=== PATIENT | male | born 1945 | race Hispanic/Latino ===

== ENCOUNTER 2017-09-25 10:03 | Inpatient (IN) | payer OTHER ==
[~2017-09-25] VITALS: Ht 175.3 cm; Wt 67.2 kg
[2017-09-25 00:30] VITALS: BP 154/74
[2017-09-25 11:20] LABS: BASOPHILS # (AUTO) 0.1 (0.0-0.1); BASOPHILS % 0.3 % (0.0-1.0); HEMATOCRIT 36.6 % (38.2-49.6); HEMOGLOBIN 12.4 g/dL (14.0-18.0); LYMPHOCYTES # (AUTO) 0.7 (1.0-3.2); MEAN CORPUSCULAR HEMOGLOBIN 30.5 pg (28-32); MEAN CORPUSCULAR HGB CONC 33.9 g/dL (31-35); MEAN CORPUSCULAR VOLUME 90.1 fL (81-99); MONOCYTES # (AUTO) 1.5 (0.2-0.8); MONOCYTES % 4.6 % (4.4-11.3); NEUTROPHILS # (AUTO) 30.4 (2.1-6.9); NEUTROPHILS % 91.4 % (38.7-80.0); PLATELET COUNT 369 x10e3/uL (140-360); RED BLOOD COUNT 4.06 x10e6/uL (4.3-5.7); RED CELL DISTRIBUTION WIDTH 12.6 % (11.7-14.4)
--- NOTE | 2017-09-25 11:29 | Diagnostic Imaging Report ---
PROCEDURE:X-RAY LEFT FOOT, COMPLETE COMPARISON:None. INDICATIONS:DIABETIC FOOT ULCER FINDINGS: No evidence of acute fracture. Soft tissue ulcer is present in the palmar aspect of the foot superficial to the metatarsal heads. There is soft tissue gas seen throughout the palmar foot soft tissues as well as the dorsal soft tissues extending to the anterior ankle. Gas overlying the dorsum of the foot limits evaluation for osteomyelitis. There is possible lytic changes involving the cuneiforms on lateral radiograph. There is malalignment of the metatarsal bases with relation to the cuneiforms. There is approximately 3 mm of offset of the second metatarsal base on the intermediate cuneiform. There is narrowing of the Lis Franc interval. Moderate to severe degenerative changes involving the metatarsocuneiform joints. CONCLUSION: Soft tissue ulcer overlying the metatarsal heads with associated soft tissue gas in the palmar and dorsal aspects of the foot, suggestive of infectious process in the setting of diabetic ulcer. Possible lytic changes involving the cuneiforms, which could reflect osteomyelitis, although evaluation is limited radiographically, CT (MRI may be limited by air related artifact) would be helpful for further evaluation. Possible Lis Franc injury (which could be chronic) would could be further evaluated with cross sectional imaging. Dictated by: SPENCER HERNÁNDEZ M.D. on 09/25/2017 at 11:33 Electronically approved by: SPENCER HERNÁNDEZ M.D. on 09/25/2017 at 11:33
[2017-09-25 11:36] LABS: ALANINE AMINOTRANSFERASE 29 IU/L (0-55); ALBUMIN 1.9 g/dL (3.5-5.0); ALBUMIN/GLOBULIN RATIO 0.4 (0.8-2.0); ALKALINE PHOSPHATASE 167 IU/L (40-150); ANION GAP 12.4 mmol/L (8-16); BLOOD UREA NITROGEN 23 mg/dL (7-26); BUN/CREATININE RATIO 31 (6-25); CALCIUM 8.7 mg/dL (8.4-10.2); CARBON DIOXIDE 31 mmol/L (22-29); CHLORIDE 96 mmol/L (98-107); CREATININE, SERUM 0.74 mg/dL (0.72-1.25); EST GLOMERULAR FILTRATION RATE > 60 ML/MIN (60-); GLUCOSE 355 mg/dL (74-118); POTASSIUM 3.4 mmol/L (3.5-5.1); SODIUM 136 mmol/L (136-145)
[2017-09-25] MEDS ORDERED: PIPER-TAZ 3.375 GM 50 ML IV SCH (12:00)
[2017-09-25] MEDS ORDERED: MORPHINE SULFATE INJ 4 MG/ML INJ IV PRN (12:15)
[2017-09-25 12:41] LABS: LYMPHOCYTES % (MANUAL) 3 % (19-48); MONOCYTES % (MANUAL) 5 % (3.4-9.0); NEUTROPHILS % (MANUAL) 92 % (40-74)
[2017-09-25 12:42] LABS: PLATELET ESTIMATE SLIGHTLY INCREASED; PLATELET MORPHOLOGY COMMENT FEW LARGE; RBC MORPHOLOGY COMMENT NORMAL
[2017-09-25] MEDS: VANCOMYCIN 1GM/NS 250 ML 250 ML IV SCH (12:49)
[2017-09-25] MEDS: SODIUM CHLORIDE 0.9% 1000ML 1,000 ML IV SCH (12:49)
[2017-09-25] MEDS ORDERED: NAMENDA10 MG PO (13:34)
[2017-09-25] MEDS ORDERED: FLAGYL250 MG PO (13:34)
[2017-09-25] MEDS ORDERED: METHYLCOBALAMIN SL (13:34)
[2017-09-25] MEDS ORDERED: CEFEPIME-D1 GM/50 ML IVP (13:34)
[2017-09-25] MEDS ORDERED: VANCOMYCIN1 GM/250 M IV (13:34)
[2017-09-25] MEDS ORDERED: COLACE100 MG PO (13:34)
[2017-09-25] MEDS ORDERED: TYLENOL WITH C1 EACH PO (13:34)
[2017-09-25] MEDS ORDERED: LACTULOSE20 GM/30 M PO (13:34)
[2017-09-25] MEDS ORDERED: DULCOLAX SUPP10 MG RC (13:34)
[2017-09-25] MEDS ORDERED: MOBIC15 MG PEG (13:34)
[2017-09-25] MEDS ORDERED: FENTANYL CITRATE/PF 100MCG/2 ML INJ ONE (14:49)
[2017-09-25] MEDS ORDERED: SODIUM CHLORIDE 0.9% 50ML 50 ML ONE (14:53)
[2017-09-25] MEDS ORDERED: IOPAMIDOL 370 MG/ML 200 ML INFUS..BTL INJ ONE (14:54)
--- NOTE | 2017-09-25 15:41 | Diagnostic Imaging Report ---
TECHNIQUE: Computed tomography imaging of the LEFT foot was performed with injected contrast. 100 cc of Isovue. HISTORY: Pain COMPARISON: None available. DISCUSSION: Ulceration of the plantar foot forefoot. Extensive soft tissue gas throughout the foot including the dorsum and plantar soft tissues extending into the deep plantar musculature. Diffuse edema and skin thickening. The soft tissue gas and edema extends to the ankle. No osseous erosion or periostitis of the osseous structures. No visualized fracture. IMPRESSION: Plantar ulceration of the forefoot with cellulitis and diffuse soft tissue gas about the plantar and dorsal foot suggestive of anaerobic infection. No discrete abscess or CT finding of osteomyelitis. (MRI of the foot and ankle (2 orders) may provide better evaluation for osteomyelitis) Signed by: Dr. Wiley Weaver M.D. on 09/25/2017 3:38 PM
--- NOTE | 2017-09-25 20:35 | Diagnostic Imaging Report ---
EXAMINATION: CHEST SINGLE (PORTABLE) INDICATION: Preoperative evaluation. COMPARISON: None FINDINGS: TUBES and LINES: None. LUNGS: Lungs are well inflated. Lungs are clear. There is no evidence of pneumonia or pulmonary edema. PLEURA: No pleural effusion or pneumothorax. HEART AND MEDIASTINUM: The cardiomediastinal silhouette is unremarkable. Median sternotomy wires. BONES AND SOFT TISSUES: No acute osseous lesion. Soft tissues are unremarkable. UPPER ABDOMEN: No free air under the diaphragm. IMPRESSION: No acute thoracic abnormality. Signed by: Dr. Avinash Mann M.D. on 09/25/2017 8:32 PM
[2017-09-25] MEDS ORDERED: BUPIVACAINE HCL 0.5% INJ 30 ML VIAL INJ ONE (21:21)
--- NOTE | 2017-09-25 22:52 | Consultation ---
DATE OF CONSULTATION: September 25, 2017 ADMITTING PHYSICIAN: Dr. Atkins REASON FOR CONSULTATION: Necrotizing foot to the left lower extremity. HISTORY OF PRESENT ILLNESS: This is a 72-year-old male, who was seen at the emergency room very confused. Upon questioning his past medical history, patient relates he is a diabetic, does not know how long he has been a diabetic. Has a history of [place], coronary artery disease with osteoarthritis. He is currently denying any history of fever, chills, nausea or vomiting. He is very confused. PAST MEDICAL HISTORY: As described above. ALLERGIES: PATIENT DENIES. PAST SURGICAL HISTORY: Remarkable for cholecystectomy and foot surgery and it looks like patient may have had a bypass surgery or stenting to his right lower extremity. CURRENT MEDICATIONS: Include IV vancomycin and Zosyn. SOCIAL HISTORY: Denies any smoking, drinking or recreational drug use. Lives in a halfway. FAMILY HISTORY: Remarkable for diabetes. REVIEW OF SYSTEMS CARDIAC: Denies any palpitations or arrhythmias. RESPIRATORY: Denies any shortness of breath productive cough. GASTROINTESTINAL: Denies any diarrhea, constipation. GENITOURINARY: Denies hematuria or problems voiding. VITALS: Afebrile pulse rate 69, respirations 20, blood pressure 154/71, O2 saturation 99%. LABS: Noted, has a white blood cell count 33.24, hemoglobin 12.4, hematocrit 36.6 with a platelet count of 369,000. Albumin of 1.9 with a blood glucose of 355,000. PODIATRIC PHYSICAL EXAMINATION: Reveals the following. VASCULATURE: Pedal pulses, both the dorsalis pedis and posterior tibialis are diminished. Skin temperature being warm and cool to touch left lower extremity. NEUROLOGICAL: Reveals a decrease in the protective sensation when utilizing [place] 5.07 monofilament wire. MUSCULOSKELETAL: Shows muscle mass to be asymmetrical, muscle strength to be 3/5 to 4/5 to all muscle groups. DERMATOLOGICAL Reveals a grade-4 ulcer with severe foul smell. Necrotizing fasciitis with gangrenous changes noted to the dorsal aspect of the left foot measuring more than 6 to 7 cm in diameter. X-RAYS: Were visualized revealing gas to both the dorsal and plantar aspect to the left lower extremity. ASSESSMENT: Gas gangrene, necrotizing fasciitis with a grade-4 ulceration. PLAN: Patient informed he will be taken for surgical intervention, emergent. The proposed surgery plus risks, complications were reviewed in great detail. Patient was given time to ask questions. Patient understands if not responsive, may end up with the [id number] amputation. Patient will be scheduled for an I and D and debridement of ulcer down to bone with bone debridement. Will be kept in p.o. STAT EKG and chest x-ray were ordered. Job#: [id number] CQ
[2017-09-25] MEDS ORDERED: BACITRACIN 50,000 UNIT VIAL ONE (22:59)
--- NOTE | 2017-09-25 23:35 | Operative Report ---
DATE OF PROCEDURE: September 25, 2017 PREOPERATIVE DIAGNOSIS: Gas gangrene, osteomyelitis with a grade-4 ulcer, left foot. POSTOPERATIVE DIAGNOSIS: Confirmed. OPERATIVE PROCEDURES 1. Extensive incision and drainage with debridement down to bone. 2. Ulcer debridement also down to bone, the plantar aspect, left foot. PROCEDURE IN DETAIL: Patient was taken into the operating room, placed on the operating room table in supine position. Following induction of general anesthesia by the anesthesiologist, Webril wraps were placed on the patient's left calf followed by application of left calf tourniquet. The left lower extremity was then prepped and draped in the usual aseptic manner and the following procedure was then performed. Attention was directed to the dorsal aspect of left foot where a curvilinear incision was performed overlying all the necrotic tissue. The incision was then deepened down to tendon and bone. The necrotic tissue was excised from the operation site in toto. All purulent drainage was drained and cultured for aerobic and anaerobic growth. Tendon and bone was exposed with extensive necrosis to 70% to 80% of the dorsal and lateral aspect of left foot. I and D was performed down to bone, tendon. Sharp excisional debridement ulcer down to bone. Attention was then directed to the plantar aspect of the left foot, where utilizing sharp dissection, the ulcer was debrided through skin, subcutaneous tissue muscle tendon and bone scraping down to the metatarsophalangeal joint area of 3rd and 4th MPJs. Severe necrosis and foul smell noted. All necrotic tissue was removed until some viable tissue was achieved. Secondary to the severe necrosis, the areas were then pulsavaced utilizing Bacitracin and then, approximately 20 mL to 25 mL of 0.5% plain Marcaine were used to achieve local anesthesia above the area. Wet-to-dry Betadine dressing was then applied and patient was then transferred from the OR to recovery room with vital signs stable and neurovascular status intact. Secondary to the severe necrosis, general surgery will be consulted. The patient will need to have a mezjc-axe-lipf amputation. Foot is not salvageable. Job#: [id number] CQ
[2017-09-26] VITALS (7 sets, daily range): BP systolic 145–167; BP diastolic 66–79
--- NOTE | 2017-09-26 00:30 | Diagnostic Imaging Report ---
Exam: Left foot 2 views AP and lateral Indication: Left foot surgery, postop Comparison: CT of the foot September 25, 2017 Findings: No fracture, dislocation or erosive changes. Mild degenerative changes of the interphalangeal joints. Soft tissue defect plantar aspect of the forefoot with soft tissue swelling and subcutaneous emphysema. Impression: Soft tissue defect plantar aspect of the forefoot. Signed by: Dr. Fany Hassan M.D. on 09/26/2017 12:26 AM
[2017-09-26] MEDS ORDERED: SODIUM CHLORIDE 0.9% 1000ML 1,000 ML ONE (01:29)
[2017-09-26] MEDS: VANCOMYCIN 1GM/NS 250 ML 250 ML IV SCH ×4 (01:30→15:07)
[2017-09-26] MEDS: SODIUM CHLORIDE 0.9% 1000ML 1,000 ML IV SCH ×3 (01:30→14:56)
[2017-09-26] MEDS ORDERED: VANCOMYCIN 1GM/NS 250 ML 250 ML ONE (01:31)
[2017-09-26] MEDS: PIPER-TAZ 3.375 GM 50 ML IV SCH ×3 (02:34→17:12)
[2017-09-26] MEDS ORDERED: MORPHINE SULFATE 2 MG/ML SYR IV PRN (03:30)
[2017-09-26 06:08] LABS: HEMATOCRIT 36.4 % (38.2-49.6); HEMOGLOBIN 12.1 g/dL (14.0-18.0); MEAN CORPUSCULAR HEMOGLOBIN 30.7 pg (28-32); MEAN CORPUSCULAR HGB CONC 33.2 g/dL (31-35); MEAN CORPUSCULAR VOLUME 92.4 fL (81-99); PLATELET COUNT 353 x10e3/uL (140-360); RED BLOOD COUNT 3.94 x10e6/uL (4.3-5.7); RED CELL DISTRIBUTION WIDTH 12.8 % (11.7-14.4)
[2017-09-26 06:41] LABS: ALANINE AMINOTRANSFERASE 24 IU/L (0-55); ALBUMIN 1.8 g/dL (3.5-5.0); ALBUMIN/GLOBULIN RATIO 0.4 (0.8-2.0); ALKALINE PHOSPHATASE 141 IU/L (40-150); ANION GAP 12.3 mmol/L (8-16); BLOOD UREA NITROGEN 19 mg/dL (7-26); BUN/CREATININE RATIO 31 (6-25); CALCIUM 8.2 mg/dL (8.4-10.2); CARBON DIOXIDE 29 mmol/L (22-29); CHLORIDE 104 mmol/L (98-107); CREATININE, SERUM 0.61 mg/dL (0.72-1.25); EST GLOMERULAR FILTRATION RATE > 60 ML/MIN (60-); GLUCOSE 236 mg/dL (74-118); POTASSIUM 3.3 mmol/L (3.5-5.1); SODIUM 142 mmol/L (136-145)
[2017-09-26] MEDS ORDERED: VANCOMYCIN 1GM/NS 250 ML 250 ML IV SCH (09:00)
--- NOTE | 2017-09-26 10:02 | Progress Note ---
DATE: September 26, 2017 SUBJECTIVE: Patient seen at bedside, doing somewhat better. Still having some discomfort to both lower extremities, with the left being worse than the right. OBJECTIVE VITAL SIGNS: Afebrile. Pulse rate 78, respirations 18, blood pressure 157/73, O2 saturation 98%. LABS: Noted. White blood cells dropping from 33.24 to 26.83. EXTREMITIES: Foul smell noted to the left lower extremity through the dressing. Decreased cellulitis to the anterior aspect of the left leg. Has a grade 1/2 ulceration on plantar aspect of right foot measuring 1.5 to 2 cm in diameter, somewhat painful upon palpation. Pedal pulses are palpable but diminished to the right lower extremity. ASSESSMENT: Status post extensive irrigation and debridement with ulcer debridement, left foot, secondary to necrotizing fasciitis with a grade-2 ulcer right. PLAN: Will start Bactroban ointment to the right foot. General surgery of Dr. Atkins's choice will be consulted for patient to have a below-knee amputation to the left lower extremity. Continue IV antibiotics such as vancomycin and Zosyn. Will continue to follow. Job#: [id number]
[2017-09-26] MEDS ORDERED: DEXTROSE 50% SYRINGE 50 ML IV PRN (13:15)
[2017-09-26 13:17] LABS: LYMPHOCYTES % (MANUAL) 4 % (19-48); MONOCYTES % (MANUAL) 2 % (3.4-9.0); NEUTROPHILS % (MANUAL) 94 % (40-74); RBC MORPHOLOGY COMMENT NORMAL
[2017-09-26 13:18] LABS: ANISOCYTOSIS SLIGHT; HYPOCHROMASIA SLIGHT; PLATELET ESTIMATE ADEQUATE; PLATELET MORPHOLOGY COMMENT NORMAL
[2017-09-26] MEDS: MUPIROCIN 2% OINT 22 GM TUBE TOP SCH (13:52)
[2017-09-26] MEDS ORDERED: SEVOFLURANE INHAL SOLN 250 ML PEN BTL INH ONE (13:54)
[2017-09-26] MEDS ORDERED: PROPOFOL IV EMULSION 10 MG/ML 20 ML VIAL IV ONE (13:54)
[2017-09-26] MEDS ORDERED: ONDANSETRON HCL INJ 2 MG/ML VIAL IV ONE (13:54)
[2017-09-26] MEDS ORDERED: LIDOCAINE HCL 2% LOCAL INJ 5 ML SDV VIAL INJ ONE (13:54)
[2017-09-26] MEDS: MORPHINE SULFATE 2 MG/ML SYR IV PRN (14:08)
[2017-09-26] MEDS: INSULIN LISPRO 100 UNIT/1 ML 3ML VIAL SQ SCH ×2 (16:30→21:00)
--- NOTE | 2017-09-26 18:50 | Consultation ---
DATE OF CONSULTATION: September 26, 2017 SURGICAL CONSULTATION REFERRING PHYSICIAN: Dr. Favian Atkins. HISTORY OF PRESENT ILLNESS: Patient is a 72-year-old male who was admitted to the emergency room with a severe infection in his left foot. He had surgery done by a classified advertising clerk with I\T\D and debridement of the foot, but it is thought the foot has extensive tissue loss such that it is not salvageable. Patient had been ambulatory up until before this illness started. PAST MEDICAL HISTORY: Significant for diabetes, Alzheimer's, coronary artery disease, hypertension, previous myocardial infarction, hyperlipidemia, dementia. ALLERGIES: HE HAS NO KNOWN ALLERGIES. MEDICATIONS PRIOR TO ADMISSION: Listed in the chart. CURRENT MEDICATIONS: Listed in chart. PREVIOUS SURGERIES: Include cholecystectomy and foot surgery. FAMILY HISTORY: Noncontributory. SOCIAL HISTORY: The patient does not smoke cigarettes or drink alcohol. He is a resident of a [facility]. REVIEW OF SYSTEMS: Limited. He does not have any fevers, has not had any weight loss, says he has been ambulatory until he started having problems with his foot. PHYSICAL EXAMINATION: GENERAL: The patient is awake and alert, in no distress. VITAL SIGNS: Normal. He is not tachycardic. HEENT: Reveals no scleral icterus. NECK: Has no masses. LUNGS: Equal breath sounds are clear bilaterally. CARDIAC: Regular rate and rhythm with no murmur. ABDOMEN: Soft without tenderness. EXTREMITIES: Femoral pulses are palpable bilaterally. There is a dressing on the left foot, but there is gangrene extending up onto the ankle and there is extensive open wound on the left foot with extensive tissue loss. Right foot has no signs of infection. NEUROLOGIC: Grossly intact. LABORATORY DATA: The white blood cell count on admission was 33,000, today is 26,000, hemoglobin 12, hematocrit 36, platelet count is normal. Chemistries show an elevated glucose. ASSESSMENT: A 72-year-old male with severe left foot infection such that the foot is not salvageable, best to be treated with left below-knee amputation which I plan to schedule for tomorrow. Procedure was explained to the patient. Thank you for asking me to see Mr. Loyola. Job#: [id number] EV
[2017-09-27] VITALS (8 sets, daily range): BP systolic 127–165; BP diastolic 59–71
[2017-09-27] MEDS: SODIUM CHLORIDE 0.45% 1,000 ML IV SCH ×3 (01:22→20:00)
[2017-09-27] MEDS: MORPHINE SULFATE 2 MG/ML SYR IV PRN ×2 (01:22→08:40)
[2017-09-27] MEDS: PIPER-TAZ 3.375 GM 50 ML IV SCH ×3 (01:22→17:00)
[2017-09-27] MEDS: VANCOMYCIN 1GM/NS 250 ML 250 ML IV SCH ×2 (02:28→15:00)
[2017-09-27 06:17] LABS: BASOPHILS # (AUTO) 0.1 (0.0-0.1); BASOPHILS % 0.2 % (0.0-1.0); EOSINOPHILS # (AUTO) 0.1 (0.0-0.4); EOSINOPHILS % 0.4 % (0.0-6.0); HEMATOCRIT 36.8 % (38.2-49.6); HEMOGLOBIN 12.1 g/dL (14.0-18.0); LYMPHOCYTES # (AUTO) 1.1 (1.0-3.2); LYMPHOCYTES % 4.6 % (18.0-39.1); MEAN CORPUSCULAR HEMOGLOBIN 30.3 pg (28-32); MEAN CORPUSCULAR HGB CONC 32.9 g/dL (31-35); MEAN CORPUSCULAR VOLUME 92.2 fL (81-99); MONOCYTES # (AUTO) 1.1 (0.2-0.8); MONOCYTES % 4.3 % (4.4-11.3); NEUTROPHILS # (AUTO) 21.8 (2.1-6.9); NEUTROPHILS % 88.9 % (38.7-80.0); PLATELET COUNT 356 x10e3/uL (140-360); RED BLOOD COUNT 3.99 x10e6/uL (4.3-5.7); RED CELL DISTRIBUTION WIDTH 12.6 % (11.7-14.4)
[2017-09-27 06:34] LABS: ANION GAP 12.3 mmol/L (8-16); BLOOD UREA NITROGEN 14 mg/dL (7-26); BUN/CREATININE RATIO 25 (6-25); CALCIUM 7.9 mg/dL (8.4-10.2); CARBON DIOXIDE 26 mmol/L (22-29); CHLORIDE 102 mmol/L (98-107); CREATININE, SERUM 0.56 mg/dL (0.72-1.25); EST GLOMERULAR FILTRATION RATE > 60 ML/MIN (60-); GLUCOSE 175 mg/dL (74-118); POTASSIUM 3.3 mmol/L (3.5-5.1); SODIUM 137 mmol/L (136-145)
[2017-09-27] MEDS: INSULIN LISPRO 100 UNIT/1 ML 3ML VIAL SQ SCH ×4 (07:30→21:00)
[2017-09-27] MEDS: MUPIROCIN 2% OINT 22 GM TUBE TOP SCH (09:00)
[2017-09-27] MEDS: MEMANTINE 10 MG TAB PO SCH ×2 (09:00→17:00)
--- NOTE | 2017-09-27 10:01 | Progress Note ---
DATE: September 27, 2017 SUBJECTIVE: Patient seen at bedside, in no distress. OBJECTIVE: VITAL SIGNS: Afebrile. Pulse rate 66, respirations 18, blood pressure 131/59, O2 saturation 96%. EXTREMITIES: Foul smell noted to the left lower extremity. Status post I and D with debridement of ulceration. Has a grade 1 ulcer, plantar aspect, right foot, stable for now. Pedal pulses are diminished to the right lower extremity. Multiple nails are yellow discolored with subungual debris to both lower extremities. LABS: Noted. White blood cell count dropping down from 33 to 24.46. ASSESSMENT: 1. Necrotizing fasciitis, left foot. 2. Grade 1 ulcer, right. 3. Onychomycosis with diabetic neuropathy. PLAN: Will continue Bactroban ointment to the right foot. Continue diluted wet-to-dry Betadine. Patient will be taken for surgical intervention for BKA possibly today. Will continue to follow. Job#: [id number]
[2017-09-27] MEDS ORDERED: ONDANSETRON HCL INJ 2 MG/ML VIAL ONE (15:02)
[2017-09-27] MEDS ORDERED: LIDOCAINE HCL 2% LOCAL INJ 5 ML SDV VIAL INJ ONE (15:02)
[2017-09-27] MEDS ORDERED: PROPOFOL IV EMULSION 10 MG/ML 20 ML VIAL ONE (15:02)
[2017-09-27] MEDS ORDERED: MORPHINE SULFATE 2 MG/ML SYR IV PRN (15:30)
--- NOTE | 2017-09-27 15:32 | Operative Report ---
DATE OF PROCEDURE: September 27, 2017 PREOPERATIVE DIAGNOSIS: Necrotic ulcer, left foot. POSTOPERATIVE DIAGNOSIS: Necrotic ulcer, left foot. PROCEDURE PERFORMED: Left below-knee amputation. SQL REPORT ANALYST: None. ANESTHESIA: General. INDICATIONS AND FINDINGS: Patient is a 72-year-old male who presented with an infection in the left foot. He had debridement of the foot, but the patient had extensive necrotic tissue such that the foot was not salvageable. At surgery, the patient was found to have viable tissues at the level of the amputation with adequate arterial circulation. TECHNIQUE: After adequate general anesthesia, with the patient in the supine position, the left leg was prepped and draped in a sterile fashion with [place] solution. About 9 cm distal to the tibial tuberosity, an incision was made on the anterior aspect of the leg, then carried out posterior to create a posterior myocutaneous flap. Anterior compartment muscles were divided. Anterior tibial and neurovascular bundle were divided between clamps. Additional muscles laterally were divided with electrocautery. Medially, muscle was also divided with electrocautery. The tibia was stripped of its periosteum, and then it was divided with a Gigli saw, being beveled anteriorly. Laterally, the fibula was exposed. It was stripped of its periosteum. It was divided as proximally as possible with a Gigli saw. The peroneal and posterior tibial neurovascular bundles were divided between clamps. Posterior muscles were divided, leaving muscle on the posterior flap. The leg was removed. Each neurovascular bundle was suture ligated with 2-0 silk. Some additional vessels which were bleeding were suture ligated with 2-0 silk and hemostasis achieved. The wound was irrigated with saline and inspected for hemostasis, which was seen to be adequate. The flap was then brought anteriorly and the superficial fascia closed with interrupted sutures of 2-0 Vicryl. Skin was closed with qian. Sterile dressing was applied. The leg was placed into a knee immobilizer. Patient tolerated the procedure well. Estimated blood loss was 150 mL. There were no complications. All counts were correct. Patient was taken to the recovery room in satisfactory condition. Job#: [id number] cc:FAWN OSBORN MD
[2017-09-27] MEDS: MORPHINE SULFATE INJ 4 MG/ML INJ IV PRN (15:36)
[2017-09-27] MEDS ORDERED: FENTANYL CITRATE/PF 100MCG/2 ML INJ ONE (16:38)
[2017-09-27] MEDS ORDERED: MIDAZOLAM HCL 2 MG/2 ML VIAL ONE (16:38)
[2017-09-28] VITALS (8 sets, daily range): BP systolic 137–191; BP diastolic 65–89
[2017-09-28] MEDS: MORPHINE SULFATE INJ 4 MG/ML INJ IV PRN ×3 (00:16→22:08)
[2017-09-28] MEDS: PIPER-TAZ 3.375 GM 50 ML IV SCH ×3 (00:16→18:12)
[2017-09-28] MEDS: VANCOMYCIN 1GM/NS 250 ML 250 ML IV SCH ×2 (01:45→16:00)
[2017-09-28] MEDS: SODIUM CHLORIDE 0.45% 1,000 ML IV SCH ×3 (06:00→22:43)
[2017-09-28 06:02] LABS: BASOPHILS # (AUTO) 0.1 (0.0-0.1); BASOPHILS % 0.3 % (0.0-1.0); EOSINOPHILS # (AUTO) 0.1 (0.0-0.4); EOSINOPHILS % 0.5 % (0.0-6.0); HEMATOCRIT 33.4 % (38.2-49.6); HEMOGLOBIN 11.4 g/dL (14.0-18.0); LYMPHOCYTES % 6.6 % (18.0-39.1); MEAN CORPUSCULAR HEMOGLOBIN 30.4 pg (28-32); MEAN CORPUSCULAR HGB CONC 34.1 g/dL (31-35); MEAN CORPUSCULAR VOLUME 89.1 fL (81-99); MONOCYTES # (AUTO) 0.9 (0.2-0.8); MONOCYTES % 5.6 % (4.4-11.3); NEUTROPHILS % 84.5 % (38.7-80.0); PLATELET COUNT 366 x10e3/uL (140-360); RED BLOOD COUNT 3.75 x10e6/uL (4.3-5.7); RED CELL DISTRIBUTION WIDTH 12.2 % (11.7-14.4)
[2017-09-28 06:24] LABS: BLOOD UREA NITROGEN 9 mg/dL (7-26); BUN/CREATININE RATIO 17 (6-25); CALCIUM 7.7 mg/dL (8.4-10.2); CARBON DIOXIDE 27 mmol/L (22-29); CHLORIDE 101 mmol/L (98-107); CREATININE, SERUM 0.54 mg/dL (0.72-1.25); EST GLOMERULAR FILTRATION RATE > 60 ML/MIN (60-); GLUCOSE 174 mg/dL (74-118); MAGNESIUM 1.5 MG/DL (1.3-2.1); PHOSPHORUS 2.2 MG/DL (2.3-4.7); SODIUM 138 mmol/L (136-145)
[2017-09-28 06:45] LABS: THYROID STIMULATING HORMONE 1.347 uIU/mL (0.350-4.940)
[2017-09-28] MEDS: INSULIN LISPRO 100 UNIT/1 ML 3ML VIAL SQ SCH ×4 (07:30→21:15)
[2017-09-28 07:44] LABS: ANISOCYTOSIS SLIGHT; HYPOCHROMASIA SLIGHT; LYMPHOCYTES % (MANUAL) 5 % (19-48); MONOCYTES % (MANUAL) 4 % (3.4-9.0); NEUTROPHILS % (MANUAL) 91 % (40-74); PLATELET ESTIMATE ADEQUATE; PLATELET MORPHOLOGY COMMENT NORMAL; RBC MORPHOLOGY COMMENT NORMAL
[2017-09-28] MEDS: MUPIROCIN 2% OINT 22 GM TUBE TOP SCH (09:00)
[2017-09-28] MEDS: MEMANTINE 10 MG TAB PO SCH ×2 (09:00→17:00)
--- NOTE | 2017-09-28 09:33 | Progress Note ---
DATE: September 28, 2017 SUBJECTIVE: Patient seen at bedside, in no apparent distress. OBJECTIVE VITAL SIGNS: Afebrile. Pulse rate 72, respirations 19, blood pressure 191/89, O2 saturation 96%. LABS: Noted. White blood cell count dropping to 15.35. Patient is status post below the knee amputation per Dr. Valencia as of yesterday. Ulceration to the right lower extremity is stable, less than 1.5 cm in diameter with pain upon palpation and ambulation. ASSESSMENT: Grade 1/2 ulceration, diabetic neuropathy with peripheral arterial disease. PLAN: Will continue to treat conservatively with Bactroban ointment to the effected area b.i.d. Continue offloading. Will continue to follow. Job#: [id number] MIKI
[2017-09-29] VITALS (9 sets, daily range): BP systolic 142–160; BP diastolic 67–86
[2017-09-29] MEDS: PIPER-TAZ 3.375 GM 50 ML IV SCH ×3 (01:31→17:45)
[2017-09-29] MEDS: VANCOMYCIN 1GM/NS 250 ML 250 ML IV SCH ×2 (01:31→14:08)
[2017-09-29] MEDS: HYDROCODONE/APAP 7.5MG-325MG 1 EA TAB PO PRN ×2 (01:32→14:20)
[2017-09-29] MEDS: MEMANTINE 10 MG TAB PO SCH ×2 (08:53→17:45)
[2017-09-29] MEDS: INSULIN LISPRO 100 UNIT/1 ML 3ML VIAL SQ SCH ×4 (08:54→20:25)
--- NOTE | 2017-09-29 09:13 | Progress Note ---
DATE: September 29, 2017 SUBJECTIVE: Patient seen at bedside. Sleepy, no distress. OBJECTIVE VITAL SIGNS: Afebrile. Pulse rate 72, respirations 18, blood pressure 146/73, O2 saturation 97%. EXTREMITIES: Incision to the left leg looks good. No signs of any type of infection or dehiscence. Ulceration to the plantar aspect of the right foot getting better with Bactroban ointment. There is still some pain upon palpating the medial and plantar aspect of the right foot. Pedal pulses are diminished. LABS: Noted. White blood cell count dropping to 15.3. ASSESSMENT: Peripheral artery disease with grade 2 ulcer right foot, status post below knee amputation left. PLAN: Will continue Bactroban ointment to the right foot. Continue offloading. Ulceration will be debrided sometime this weekend. Will continue to follow. Job#: [id number] MIKI
[2017-09-29] MEDS: MUPIROCIN 2% OINT 22 GM TUBE TOP SCH (10:57)
[2017-09-29] MEDS: MORPHINE SULFATE INJ 4 MG/ML INJ IV PRN ×3 (11:28→23:50)
[2017-09-29] MEDS: SODIUM CHLORIDE 0.45% 1,000 ML IV SCH (12:30)
--- NOTE | 2017-09-29 14:55 | Progress Note ---
DATE: Covering for Dr. Atkins. SUBJECTIVE: Patient is currently confused but seems to be maybe his underlying baseline. This is postop day number 2 for a left BKA. Patient will need nursing home facility. No overnight events. He is afebrile with no issues. OBJECTIVE VITAL SIGNS: Temperature 96.8, pulse is 75, respiratory rate is 18, blood pressure 155/79, pulse ox 98% on room air. LAB FINDINGS: Showed white count 15.3, hemoglobin 11.4, hematocrit is 34, and platelets of 366. Chemistries within normal range. IMAGING STUDIES: None. PHYSICAL EXAM GENERAL: Not in acute distress. He is just alert but he is not oriented. HEENT: Head: Normocephalic, atraumatic. Eyes: Pupils are equal, round, and reactive to light bilaterally. LUNGS: Clear to auscultation bilaterally. No wheezing, no rales, no rhonchi, no crackles appreciated. CARDIOVASCULAR: Positive S1, S2. No murmurs, rubs, or gallops. IMPRESSIONS 1. Postop day number 2 of left below-knee amputation due to underlying necrotizing fasciitis. 2. Grade 1 ulcer on the right. 3. Onychomycosis with diabetic neuropathy. 4. Type 2 diabetes. 5. Hypertension. PLAN: Continue postop care. This is day number 2. Local wound care. IV antibiotics. Continue with insulin sliding scale and antihypertensive medications. Case management ordered for nursing home facility placement. Job#: [id number] GISSELLE
[2017-09-29] MEDS: ONDANSETRON HCL INJ 2 MG/ML VIAL IV PRN (23:50)
[2017-09-30] VITALS (7 sets, daily range): BP systolic 153–174; BP diastolic 74–83
[2017-09-30] MEDS: PIPER-TAZ 3.375 GM 50 ML IV SCH ×3 (01:00→16:23)
[2017-09-30] MEDS: VANCOMYCIN 1GM/NS 250 ML 250 ML IV SCH ×2 (01:26→14:24)
[2017-09-30 05:51] LABS: BASOPHILS % 0.2 % (0.0-1.0); EOSINOPHILS # (AUTO) 0.1 (0.0-0.4); EOSINOPHILS % 0.8 % (0.0-6.0); HEMATOCRIT 32.9 % (38.2-49.6); HEMOGLOBIN 10.8 g/dL (14.0-18.0); LYMPHOCYTES # (AUTO) 0.8 (1.0-3.2); LYMPHOCYTES % 6.2 % (18.0-39.1); MEAN CORPUSCULAR HEMOGLOBIN 30.1 pg (28-32); MEAN CORPUSCULAR HGB CONC 32.8 g/dL (31-35); MEAN CORPUSCULAR VOLUME 91.6 fL (81-99); MONOCYTES % 7.2 % (4.4-11.3); NEUTROPHILS # (AUTO) 11.1 (2.1-6.9); PLATELET COUNT 340 x10e3/uL (140-360); RED BLOOD COUNT 3.59 x10e6/uL (4.3-5.7); RED CELL DISTRIBUTION WIDTH 12.6 % (11.7-14.4)
[2017-09-30 06:08] LABS: ANION GAP 15.1 mmol/L (8-16); CALCIUM 7.9 mg/dL (8.4-10.2); POTASSIUM 3.1 mmol/L (3.5-5.1)
[2017-09-30] MEDS: SODIUM CHLORIDE 0.45% 1,000 ML IV SCH ×3 (06:09→22:25)
[2017-09-30 06:22] LABS: CREATININE, SERUM 1.4 mg/dL (0.72-1.25)
[2017-09-30] MEDS: MUPIROCIN 2% OINT 22 GM TUBE TOP SCH (08:40)
[2017-09-30] MEDS: HYDROCODONE/APAP 7.5MG-325MG 1 EA TAB PO PRN ×2 (08:40→17:00)
[2017-09-30] MEDS: MEMANTINE 10 MG TAB PO SCH ×2 (08:40→16:23)
[2017-09-30] MEDS: INSULIN LISPRO 100 UNIT/1 ML 3ML VIAL SQ SCH ×4 (10:06→20:10)
[2017-09-30] MEDS: MORPHINE SULFATE INJ 4 MG/ML INJ IV PRN (14:24)
[2017-09-30] MEDS ORDERED: POTASSIUM CHLORIDE 20 MEQ TAB CR PO NR (15:00)
--- NOTE | 2017-09-30 17:42 | Progress Note ---
DATE: September 30, 2017 I am covering for Dr. Atkins. SUBJECTIVE: Patient is still confused, at his possibly underlying baseline. This is postop day #3 of left BKA. We are still waiting on residential facility placement. OBJECTIVE VITAL SIGNS: His temperature is 97.6, pulse 72, respiratory rate 20, blood pressure 152/82, pulse ox 97% on room air. LAB FINDINGS: White count 13, hemoglobin 10.8, hematocrit 33, platelets 340. Chemistries: Sodium 143, potassium 3.1, chloride 104, bicarb 27, anion gap 15, creatinine 1.4. His nrbys-ko-jrfw glucose is 150. MICROBIOLOGY: His wound cultures are positive for proteus, enterococcus, and streptococcus. Blood cultures were negative. PHYSICAL EXAMINATION GENERAL: He is confused, presumed likely to be at his baseline. HEENT: Head: Normocephalic, atraumatic. Eyes: Pupils are equal, round, and reactive to light bilaterally. LUNGS: Clear to auscultation bilaterally. No wheezing, no rales, no rhonchi, no crackles appreciated. CARDIOVASCULAR: Positive S1, S2. No murmurs, rubs, or gallops. IMPRESSION 1. Postoperative day #3 of left below-knee amputation due to underlying necrotizing fasciitis. 2. Grade-1 ulcer on the right. 3. Onychomycosis with diabetic neuropathy. 4. Type-2 diabetes. 5. Hypertension. PLAN: Continue postop care. This is day #3 postop. Continue local wound care and IV antibiotics. We are still awaiting residential facility placement. Job#: [id number]
--- NOTE | 2017-09-30 19:03 | Progress Note ---
DATE: September 30, 2017 SUBJECTIVE: Patient at bedside. No apparent distress. Having some discomfort to the right lower extremity. Doing well from the BKA to the left lower extremity. OBJECTIVE VITALS: Afebrile, pulse rate 72, respirations 20, blood pressure 153/82, O2 saturation 97%. EXTREMITIES: Grade 1 ulcer/2 ulceration on plantar aspect of right foot. Painful upon palpation. Decreased circulatory status with decreased PT and DP to the right foot. Has dystrophic toenails, 1-5 bilaterally. White blood cell count continues drop to 13.22 with a high of 33.24. ASSESSMENT 1. Onychomycosis. 2. Grade 2 ulcer. 3. Diabetic neuropathy with peripheral arterial disease. PLAN: Continue Bactroban ointment to the affected area. Ulceration will be debrided in the next couple of days. Continue offloading as best as possible. Will continue to follow. Job#: [id number] HUGO
[2017-10-01] VITALS (8 sets, daily range): BP systolic 174–186; BP diastolic 63–85
[2017-10-01] MEDS: ONDANSETRON HCL INJ 2 MG/ML VIAL IV PRN (00:18)
[2017-10-01] MEDS: MORPHINE SULFATE INJ 4 MG/ML INJ IV PRN (00:18)
[2017-10-01] MEDS: PIPER-TAZ 3.375 GM 50 ML IV SCH ×3 (00:19→17:00)
[2017-10-01] MEDS: VANCOMYCIN 1GM/NS 250 ML 250 ML IV SCH (02:00)
[2017-10-01] MEDS: SODIUM CHLORIDE 0.45% 1,000 ML IV SCH ×3 (04:00→22:17)
[2017-10-01] MEDS: INSULIN LISPRO 100 UNIT/1 ML 3ML VIAL SQ SCH ×4 (07:30→20:39)
[2017-10-01] MEDS: MUPIROCIN 2% OINT 22 GM TUBE TOP SCH (09:00)
[2017-10-01] MEDS: MEMANTINE 10 MG TAB PO SCH ×2 (09:00→17:00)
--- NOTE | 2017-10-01 11:38 | Progress Note ---
DATE: October 01, 2017 SUBJECTIVE: Patient is alert. Still somewhat mildly confused. Denying any history of fever, chills, nausea, or vomiting. Decreased pain to the left leg stump and also decreased pain to the right foot. Having some burning and tingling to the right lower extremity. OBJECTIVE VITALS: Afebrile, pulse rate 75, respirations 20, blood pressure 174/80, O2 saturation 95%. EXTREMITIES: Ulceration to the right lower extremity shows some superficial necrosis noted on the dermis possibly down to subcutaneous. Decreased periwound cellulitis. Still some pain upon palpation. Pedal pulses are diminished to both the DP and PT. Incision site to the left lower extremity covered with an Juliocesar bandage. LABS: Show a white blood cell count of 13.22. ASSESSMENT 1. Grade 2 ulcer. 2. Diabetic neuropathy. 3. Peripheral artery disease. PLAN: Will continue Bactroban ointment. Ulceration will be debrided tomorrow. Continue offloading. Will continue to follow. Job#: [id number] HUGO
--- NOTE | 2017-10-01 18:26 | Progress Note ---
DATE: October 01, 2017 I am covering for Dr. Atkins. SUBJECTIVE: The patient is much more alert today. He was talking on examination. This is postop day #4 of a left BKA. We are still waiting for [facility] facility placement. OBJECTIVE VITAL SIGNS: He is afebrile. Temperature is 97.5, pulse is 73, respiratory rate is 10, blood pressure is elevated at 179/85, and pulse ox is 97% on room air. GENERAL: Not in acute distress. Alert and oriented times 2. Cooperative on examination. HEENT: Head is normocephalic and atraumatic. Eyes: Pupils equal, round and reactive to light bilaterally. Extraocular movements intact bilaterally. NECK: Supple. Good range of motion. Throat with no evidence of any erythema or exudates in the posterior pharynx. Has poor dentition. PULMONARY: Clear to auscultation bilaterally. No wheezing. No rales. No rhonchi. No crackles appreciated. CARDIOVASCULAR: Positive S1 and S2. No murmurs, rubs or gallops appreciated. ABDOMEN: Soft, nondistended and nontender to palpation. Bowel sounds present. EXTREMITIES: Has AKA. Good range of motion throughout. LAB FINDINGS: Show a white count of 13, hemoglobin 10.8, hematocrit is 33, and platelets of 340,000. Chemistry: Sodium 143, potassium 3.1, chloride is 104, bicarb is 27, anion gap of 15, BUN is 14, creatinine is 1.4. Glucose point of care is 184. A1c is 6.9. MICROBIOLOGY: Wound culture shows Proteus, enterococcus and streptococcus. IMPRESSION 1. Postoperative day #4 of left below knee amputation due to underlying necrotizing fasciitis. 2. Grade 1 ulcer on the right foot. 3. Onychomycosis with diabetic neuropathy. 4. Type 2 diabetes. 5. Hypertension. PLAN: At this time, continue with postop care. He continues to be on IV antibiotics for his positive wound cultures. It is sensitive to Zosyn. Will continue with that same regimen. We are still awaiting for [facility] facility placement. Job#: [id number] [place]
[2017-10-01] MEDS ORDERED: HYDRALAZINE HCL 20 MG/ML VIAL IV PRN (20:45)
[2017-10-01] MEDS: NIFEDIPINE CR 30 MG TAB PO SCH (20:45)
[2017-10-01] MEDS: HYDROCODONE/APAP 7.5MG-325MG 1 EA TAB PO PRN (20:45)
[2017-10-02] MEDS: MORPHINE SULFATE INJ 4 MG/ML INJ IV PRN (00:30)
[2017-10-02] MEDS: ONDANSETRON HCL INJ 2 MG/ML VIAL IV PRN (00:30)
[2017-10-02] MEDS: PIPER-TAZ 3.375 GM 50 ML IV SCH ×3 (01:00→16:59)
[2017-10-02 04:00] VITALS: BP 146/65
[2017-10-02 07:45] VITALS: BP 150/67
[2017-10-02] MEDS: INSULIN LISPRO 100 UNIT/1 ML 3ML VIAL SQ SCH ×4 (08:00→21:00)
[2017-10-02 08:02] VITALS: BP 150/67
[2017-10-02] MEDS: HYDROCODONE/APAP 7.5MG-325MG 1 EA TAB PO PRN ×2 (08:39→17:01)
[2017-10-02] MEDS: MEMANTINE 10 MG TAB PO SCH ×2 (08:39→16:59)
[2017-10-02] MEDS: NIFEDIPINE CR 30 MG TAB PO SCH (08:40)
[2017-10-02] MEDS: MUPIROCIN 2% OINT 22 GM TUBE TOP SCH ×2 (08:40→10:30)
[2017-10-02] MEDS ORDERED: MAGNESIUM HYDROXIDE 30 ML UDC PO PRN (09:15)
[2017-10-02] MEDS ORDERED: BISACODYL 10 MG SUPP PR NR (09:45)
[2017-10-02 09:58] LABS: BASOPHILS % 0.1 % (0.0-1.0); EOSINOPHILS # (AUTO) 0.1 (0.0-0.4); EOSINOPHILS % 1.4 % (0.0-6.0); HEMATOCRIT 34.5 % (38.2-49.6); HEMOGLOBIN 11.4 g/dL (14.0-18.0); LYMPHOCYTES # (AUTO) 0.6 (1.0-3.2); LYMPHOCYTES % 6.7 % (18.0-39.1); MEAN CORPUSCULAR HEMOGLOBIN 30.3 pg (28-32); MEAN CORPUSCULAR VOLUME 91.8 fL (81-99); MONOCYTES # (AUTO) 0.6 (0.2-0.8); MONOCYTES % 6.2 % (4.4-11.3); NEUTROPHILS # (AUTO) 7.5 (2.1-6.9); NEUTROPHILS % 83.5 % (38.7-80.0); PLATELET COUNT 341 x10e3/uL (140-360); RED BLOOD COUNT 3.76 x10e6/uL (4.3-5.7); RED CELL DISTRIBUTION WIDTH 12.7 % (11.7-14.4)
--- NOTE | 2017-10-02 10:06 | Progress Note ---
DATE: October 02, 2017 SUBJECTIVE: Patient was seen at bedside. Less confused on this date. Doing well. Having some discomfort and pain to the right foot. OBJECTIVE VITAL SIGNS: Afebrile, pulse rate 79, respirations 16, blood pressure 150/67, O2 saturation 98%. EXTREMITIES: Has a grade 2 ulcer on plantar aspect, right foot measuring 1 1/2 to 2 cm in diameter with some necrosis noted down to dermis and subcutaneous tissue with periwound cellulitis. Multiple nails with subungual debris with pedal pulses diminished. LABS: Noted. White blood cell count down to 13.22. ASSESSMENT 1. Peripheral artery disease with a grade 2 ulceration. 2. Eczema and dermatophytosis. PLAN: Sharp excisional debridement of the ulcer was carried down to the dermis and subcutaneous. Devitalized tissue removed. Bleeding tissue achieved. Bactroban ointment followed by a sterile dressing was applied. Will continue offloading. Will continue to follow. Job#: [id number] [place]
[2017-10-02 10:15] LABS: ANION GAP 15.4 mmol/L (8-16); CALCIUM 8.3 mg/dL (8.4-10.2); CREATININE, SERUM 1.69 mg/dL (0.72-1.25); POTASSIUM 3.4 mmol/L (3.5-5.1)
[2017-10-02] MEDS: SENNOSIDES 8.6 MG TAB PO SCH ×2 (10:30→16:59)
[2017-10-02 11:28] VITALS: BP 123/57
[2017-10-02 11:38] LABS: ANISOCYTOSIS SLIGHT; EOSINOPHILS % (MANUAL) 2 % (0-7); LYMPHOCYTES % (MANUAL) 6 % (19-48); MONOCYTES % (MANUAL) 3 % (3.4-9.0); NEUTROPHILS % (MANUAL) 87 % (40-74); RBC MORPHOLOGY COMMENT NORMAL; SMUDGE CELLS FEW
[2017-10-02 11:39] LABS: PLATELET ESTIMATE ADEQUATE; PLATELET MORPHOLOGY COMMENT NORMAL
[2017-10-02 15:46] VITALS: BP 121/62
[2017-10-02 20:00] VITALS: BP 136/69
[2017-10-03] VITALS: BP 135/63
[2017-10-03] MEDS: PIPER-TAZ 3.375 GM 50 ML IV SCH (02:29)
[2017-10-03 04:00] VITALS: BP 137/63
[2017-10-03 06:00] LABS: BASOPHILS % 0.3 % (0.0-1.0); EOSINOPHILS # (AUTO) 0.2 (0.0-0.4); EOSINOPHILS % 1.7 % (0.0-6.0); HEMATOCRIT 34.5 % (38.2-49.6); HEMOGLOBIN 11.4 g/dL (14.0-18.0); LYMPHOCYTES # (AUTO) 0.7 (1.0-3.2); LYMPHOCYTES % 8.1 % (18.0-39.1); MEAN CORPUSCULAR HEMOGLOBIN 29.9 pg (28-32); MEAN CORPUSCULAR VOLUME 90.6 fL (81-99); MONOCYTES # (AUTO) 0.7 (0.2-0.8); MONOCYTES % 7.7 % (4.4-11.3); NEUTROPHILS # (AUTO) 7.5 (2.1-6.9); NEUTROPHILS % 81.2 % (38.7-80.0); PLATELET COUNT 374 x10e3/uL (140-360); RED BLOOD COUNT 3.81 x10e6/uL (4.3-5.7); RED CELL DISTRIBUTION WIDTH 12.6 % (11.7-14.4)
[2017-10-03 06:24] LABS: ANION GAP 14.2 mmol/L (8-16); CALCIUM 8.5 mg/dL (8.4-10.2); CREATININE, SERUM 1.72 mg/dL (0.72-1.25); POTASSIUM 3.2 mmol/L (3.5-5.1)
[2017-10-03] MEDS: INSULIN LISPRO 100 UNIT/1 ML 3ML VIAL SQ SCH ×2 (07:30→11:30)
[2017-10-03] MEDS: HYDROCODONE/APAP 7.5MG-325MG 1 EA TAB PO PRN (07:43)
[2017-10-03 08:00] VITALS: BP 132/69
[2017-10-03] MEDS: MEMANTINE 10 MG TAB PO SCH (09:00)
[2017-10-03] MEDS: NIFEDIPINE CR 30 MG TAB PO SCH (09:00)
[2017-10-03] MEDS: MUPIROCIN 2% OINT 22 GM TUBE TOP SCH (09:00)
[2017-10-03] MEDS: SENNOSIDES 8.6 MG TAB PO SCH (09:00)
[2017-10-03] MEDS ORDERED: POTASSIUM CHLORIDE 10 MEQ TABCR PO ONE (09:15)
[2017-10-03] MEDS ORDERED: POTASSIUM CHLORIDE 10 MEQ TABCR PO NR ×2 (09:30→12:45)
--- NOTE | 2017-10-03 09:33 | Progress Note ---
DATE: October 03, 2017 SUBJECTIVE: Patient was seen at bedside. Less confused. Doing well. Decreased pain to the right lower extremity. OBJECTIVE VITALS: Afebrile, pulse rate 76, respirations 18, blood pressure 132/69, O2 saturation 96%. EXTREMITIES: Ulceration of the right lower extremity improving significantly. Decreased cellulitis. Pedal pulses are diminished to both the DP and PT. LABS: Show a white blood cell count down to 9.19, hemoglobin 11.4 with a platelet count of 374,000. ASSESSMENT 1. Grade 2 ulcer healing. 2. Diabetic neuropathy: Doing well status post below knee amputation, left foot. PLAN: Will continue with local wound care. Continue IV antibiotics. Continue offloading. Will continue to follow. Job#: [id number] [place]
--- NOTE | 2017-10-03 10:57 | Discharge Summary ---
CONSULTANTS: Dr. Howard Valencia and Dr. Josh Galeano. FINAL DIAGNOSES 1. Status post sepsis without shock. 2. Necrotizing fasciitis, left foot infection. 3. Status post left below knee amputation. SUMMARY: A 72-year-old demented male, poor ADL care with left foot infection. The patient is now status post left lower extremity BKA. Postoperatively, the patient is stable. He had sepsis and now resolved. Fever resolved. Blood pressure is stable. The patient does have pain. He is comfortable. He will go back to the group home to continue with his snf care. No further IV antibiotics needed. The patient is otherwise stable. Please review the medications on discharge. Job#: [id number] [place]
[2017-10-03 12:00] VITALS: BP 148/64
== END 2017-10-03 14:10 | disposition home or self-care (01) | DRG 853 ==
LOC: ER 10:03 → UNDOADMIN 12:29 → ERHOLD 12:29 → OR 20:42 → ICU 23:17 → OR 09-26 01:10 → MED/SURG3 09-26 01:11
PROVIDERS: ADMIT Internal Medicine; ATTEND Internal Medicine
PROC: 0QBP0ZZ Excision of Left Metatarsal, Open Approach (ICD-10-PCS; 2017-09-25)
PROC: 0Y6J0Z2 Detachment at Left Lower Leg, Mid, Open Approach (ICD-10-PCS; principal; 2017-09-27 12:31)
DX: A41.9 Sepsis, unspecified organism (principal); A48.0 Gas gangrene; M72.6 Necrotizing fasciitis; E11.52 Type 2 diabetes mellitus with diabetic peripheral angiopathy with gangrene; M86.8X7 Other osteomyelitis, ankle and foot; L03.115 Cellulitis of right lower limb; I10 Essential (primary) hypertension; F03.90 Unspecified dementia, unspecified severity, without behavioral disturbance, psychotic disturbance, mood disturbance, and anxiety; B35.1 Tinea unguium; E11.69 Type 2 diabetes mellitus with other specified complication; I25.10 Atherosclerotic heart disease of native coronary artery without angina pectoris; L97.529 Non-pressure chronic ulcer of other part of left foot with unspecified severity; L97.519 Non-pressure chronic ulcer of other part of right foot with unspecified severity; B96.4 Proteus (mirabilis) (morganii) as the cause of diseases classified elsewhere; B95.2 Enterococcus as the cause of diseases classified elsewhere; B95.5 Unspecified streptococcus as the cause of diseases classified elsewhere; B35.9 Dermatophytosis, unspecified
CPT/HCPCS: 36415; 71045; 80048; 80053; 80202; 82607; 82948; 83036; 83605; 83735; 84100; 84443; 85007; 85025; 85027; 87040; 87071; 87075; 87186; 87205; 88302; 88307; 93005; 96361; 97139; 99284; J2001; J2250; J2270; J2405; J2543; J3370; J7030; Q9967